=== PATIENT | female | born 1955 | race Caucasian/White ===

== ENCOUNTER 2024-03-05 18:18 | Emergency (ER) | payer MEDICARE ==
[~2024-03-05] VITALS: Ht 154.9 cm; Wt 81.8 kg
[~2024-03-05 18:18] MED LIST: ASPI-1450 PO
[2024-03-05 18:23] VITALS: TEMP 98.5
[2024-03-05 18:30] LABS: COVID AG,FIA SOURCE NASAL SWAB
[2024-03-05 19:14] LABS: INFLUENZA TYPE A NEGATIVE FOR TYPE A (NEGATIVE); INFLUENZA TYPE B NEGATIVE FOR TYPE B (NEGATIVE); SARS-COV2 (COVID) ANTIGEN,FIA Negative (Negative)
[2024-03-05] MEDS ORDERED: ALEN70TA80 PO (20:18)
[2024-03-05] MEDS ORDERED: AMLO5TAB66 PO (20:18)
[2024-03-05] MEDS ORDERED: HYDR25TA2 PO (20:18)
[2024-03-05] MEDS ORDERED: SACU1TAB4 PO (20:18)
[2024-03-05] MEDS ORDERED: ROSU40TA88 PO (20:18)
[2024-03-05] MEDS: ACETAMINOPHEN 500 MG TABLET PO ONE (20:41)
[2024-03-05] MEDS: GuaiFENesin/D-METHORPHAN [SUGAR-FREE] 200-20MG/10 ML SYRUP UDCUP PO ONE (20:41)
[2024-03-05] MEDS: PredniSONE 20 MG TABLET PO ONE (20:42)
[2024-03-05 21:02] VITALS: PULSE 87; RESP 20; O2SAT 98
[2024-03-05] MEDS: ALBUTEROL SULFATE 2.5 MG/0.5 ML NEB SOLUTION NEB ONE (21:02)
[2024-03-05] MEDS: IPRATROPIUM BROMIDE 0.5 MG/2.5 ML NEB SOLUTION NEB ONE (21:02)
[2024-03-05 21:03] LABS: BASOPHILS % (AUTO) 0.2 % (0.0-2.0); EOSINOPHILS % (AUTO) 2.7 % (1.0-6.0); HEMATOCRIT 41.5 % (36-46); HEMOGLOBIN 13.7 g/dL (12.0-16.0); LYMPHOCYTES # (AUTO) 1.8 K/uL (1.0-4.8); LYMPHOCYTES % (AUTO) 21.5 % (22.0-44.0); MEAN CORPUSCULAR HEMOGLOBIN 30.8 pg (26.0-34.0); MEAN CORPUSCULAR HGB CONC 32.9 G/dL (31.0-37.0); MEAN CORPUSCULAR VOLUME 93 fL (80-100); MONOCYTES # (AUTO) 0.8 K/uL (0.1-1.0); MONOCYTES % (AUTO) 9.4 % (2.0-9.0); NEUTROPHILS # (AUTO) 5.4 K/uL (1.8-7.7); NEUTROPHILS % (AUTO) 66.2 % (40.0-70.0); PLATELET COUNT (AUTO) 209 K/uL (150-450); RED BLOOD CELL COUNT(AUTO) 4.45 MIL/uL (4.00-5.20); RED CELL DISTRIBUTION WIDTH 13.5 % (11.5-14.5); WHITE BLOOD COUNT (AUTO) 8.2 K/uL (4.5-11.0)
[2024-03-05 21:11] VITALS: PULSE 87; RESP 20; O2SAT 98
[2024-03-05 21:12] LABS: ANION GAP 10 mmol/L (8-16); CALCIUM, TOTAL 9.2 mg/dL (8.8-10.5); CARBON DIOXIDE 30 mmol/L (22-29); CHLORIDE 102 mmol/L (98-107); CREATININE 0.84 mg/dL (0.60-1.30); GLOMERULAR FILTR. RATE CALC > 60 mL/min (>60); GLUCOSE,RANDOM 125 mg/dL (70-110); POTASSIUM 3.6 mmol/L (3.5-5.1); SODIUM SERUM 142 mmol/L (136-145); UREA NITROGEN, BLOOD 8 mg/dL (7-18)
[2024-03-05 21:17] VITALS: PULSE 89; RESP 20; O2SAT 100
[2024-03-05 21:22] LABS: B-TYPE NATRIURETIC PEPTIDE 16 pg/mL (0-100); TROPONIN I-HIGH SENSITIVITY 4 ng/L (<51)
[2024-03-05] MEDS ORDERED: ACET-66 PO (22:03)
[2024-03-05] MEDS ORDERED: PRED-554 PO (22:03)
[2024-03-05] MEDS ORDERED: ALBU18HF12 IH (22:03)
[2024-03-05] MEDS ORDERED: GUAIFDM PO (22:05)
[2024-03-05 22:10] VITALS: BP 126/84; PULSE 78; RESP 20; O2SAT 100
== END 2024-03-05 22:24 | disposition home or self-care (01) ==
LOC: EMS 18:18
DX: J20.9 Acute bronchitis, unspecified (principal); J06.9 Acute upper respiratory infection, unspecified; I10 Essential (primary) hypertension; Z98.890 Other specified postprocedural states; Z79.82 Long term (current) use of aspirin; Z79.899 Other long term (current) drug therapy; Z88.0 Allergy status to penicillin; Z20.822 Contact with and (suspected) exposure to COVID-19
CPT/HCPCS: 99285; 71045; 87426; 80048; 83880; 84484; 85025; 87804; 36415; 93005; J7512; J7613

== ENCOUNTER 2024-03-29 09:26 | Emergency (ER) | payer MEDICARE ==
[~2024-03-29] VITALS: Ht 152.4 cm; Wt 72.7 kg
[~2024-03-29 09:26] MED LIST changes: +ACET-66 PO; +ALBU18HF12 IH; +ALEN70TA80 PO; +AMLO5TAB66 PO; +GUAIFDM PO; +HYDR25TA2 PO; +PRED-554 PO; +ROSU40TA88 PO; +SACU1TAB4 PO
[2024-03-29 09:38] VITALS: TEMP 88
[2024-03-29 09:40] LABS: COVID AG,FIA SOURCE NASAL SWAB
[2024-03-29] MEDS ORDERED: PROM118S5 PO (09:53)
[2024-03-29 09:55] LABS: BASOPHILS % (AUTO) 0.2 % (0.0-2.0); EOSINOPHILS % (AUTO) 6.2 % (1.0-6.0); HEMATOCRIT 42.2 % (36-46); HEMOGLOBIN 13.8 g/dL (12.0-16.0); LYMPHOCYTES % (AUTO) 46.8 % (22.0-44.0); MEAN CORPUSCULAR HEMOGLOBIN 30.5 pg (26.0-34.0); MEAN CORPUSCULAR HGB CONC 32.7 G/dL (31.0-37.0); MEAN CORPUSCULAR VOLUME 93 fL (80-100); MONOCYTES # (AUTO) 0.8 K/uL (0.1-1.0); MONOCYTES % (AUTO) 18.9 % (2.0-9.0); NEUTROPHILS # (AUTO) 1.2 K/uL (1.8-7.7); NEUTROPHILS % (AUTO) 27.9 % (40.0-70.0); PLATELET COUNT (AUTO) 232 K/uL (150-450); RED BLOOD CELL COUNT(AUTO) 4.52 MIL/uL (4.00-5.20); RED CELL DISTRIBUTION WIDTH 13.6 % (11.5-14.5); WHITE BLOOD COUNT (AUTO) 4.3 K/uL (4.5-11.0)
[2024-03-29 10:04] LABS: ANION GAP 8 mmol/L (8-16); CALCIUM, TOTAL 9.2 mg/dL (8.8-10.5); CARBON DIOXIDE 30 mmol/L (22-29); CHLORIDE 104 mmol/L (98-107); CREATININE 0.71 mg/dL (0.60-1.30); GLOMERULAR FILTR. RATE CALC > 60 mL/min (>60); GLUCOSE,RANDOM 116 mg/dL (70-110); POTASSIUM 3.9 mmol/L (3.5-5.1); SODIUM SERUM 142 mmol/L (136-145); UREA NITROGEN, BLOOD 9 mg/dL (7-18)
[2024-03-29 10:12] LABS: INFLUENZA TYPE A NEGATIVE FOR TYPE A (NEGATIVE); INFLUENZA TYPE B NEGATIVE FOR TYPE B (NEGATIVE); SARS-COV2 (COVID) ANTIGEN,FIA Negative (Negative)
[2024-03-29 10:37] VITALS: PULSE 76; RESP 20; O2SAT 98
[2024-03-29] MEDS: IPRATROPIUM BROMIDE 0.5 MG/2.5 ML NEB SOLUTION NEB ONE (10:40)
[2024-03-29] MEDS: ALBUTEROL SULFATE 2.5 MG/0.5 ML NEB SOLUTION NEB ONE (10:40)
[2024-03-29 10:50] VITALS: PULSE 70; RESP 20; O2SAT 100
[2024-03-29 11:00] VITALS: BP 126/73; PULSE 77; RESP 18; O2SAT 95
[2024-03-29] MEDS ORDERED: PRED-554 PO (11:15)
[2024-03-29] MEDS ORDERED: BENZ-227 PO (11:16)
== END 2024-03-29 11:55 | disposition home or self-care (01) ==
LOC: EMS 09:31
DX: J20.9 Acute bronchitis, unspecified (principal); I10 Essential (primary) hypertension; Z88.0 Allergy status to penicillin; Z79.899 Other long term (current) drug therapy; Z20.822 Contact with and (suspected) exposure to COVID-19
CPT/HCPCS: 71045; 80048; 85025; 87804; 94640; 99285; 36415-L1; 36415-TC; J7613

== ENCOUNTER 2024-05-13 22:30 | Emergency (ER) | payer MEDICARE ==
[~2024-05-13] VITALS: Ht 147.3 cm; Wt 65.9 kg
[~2024-05-13 22:30] MED LIST changes: -ACET-66 PO; -ASPI-1450 PO; +BENZ-227 PO; -GUAIFDM PO; +PROM118S5 PO
[2024-05-13 22:39] VITALS: TEMP 98.2
[2024-05-14 00:19] LABS: BASOPHILS % (AUTO) 0.5 % (0.0-2.0); EOSINOPHILS % (AUTO) 4.8 % (1.0-6.0); HEMATOCRIT 43.6 % (36-46); HEMOGLOBIN 14.8 g/dL (12.0-16.0); LYMPHOCYTES % (AUTO) 33.9 % (22.0-44.0); MEAN CORPUSCULAR HEMOGLOBIN 31.2 pg (26.0-34.0); MEAN CORPUSCULAR HGB CONC 33.9 G/dL (31.0-37.0); MEAN CORPUSCULAR VOLUME 92 fL (80-100); MONOCYTES # (AUTO) 0.6 K/uL (0.1-1.0); MONOCYTES % (AUTO) 10.8 % (2.0-9.0); PLATELET COUNT (AUTO) 222 K/uL (150-450); RED BLOOD CELL COUNT(AUTO) 4.74 MIL/uL (4.00-5.20); RED CELL DISTRIBUTION WIDTH 13.1 % (11.5-14.5)
[2024-05-14 00:23] LABS: ANION GAP 6 mmol/L (8-16); CALCIUM, TOTAL 9.7 mg/dL (8.8-10.5); CARBON DIOXIDE 33 mmol/L (22-29); CHLORIDE 104 mmol/L (98-107); CREATININE 0.71 mg/dL (0.60-1.30); GLOMERULAR FILTR. RATE CALC > 60 mL/min (>60); GLUCOSE,RANDOM 115 mg/dL (70-110); POTASSIUM 3.2 mmol/L (3.5-5.1); SODIUM SERUM 143 mmol/L (136-145); UREA NITROGEN, BLOOD 13 mg/dL (7-18)
[2024-05-14 00:27] LABS: APPEARANCE,URINE HAZY (CLEAR); BILIRUBIN,URINE NEGATIVE (NEGATIVE); COLOR,URINE LIGHT YELLOW (YELLOW); GLUCOSE, URINE (UA) NEGATIVE (NEGATIVE); KETONES,URINE NEGATIVE (NEGATIVE); LEUKOCYTE ESTERASE ,URINE NEGATIVE (NEGATIVE); NITRATE,URINE NEGATIVE (NEGATIVE); OCCULT BLOOD,URINE NEGATIVE (NEGATIVE); PROTEIN,URINE NEGATIVE (NEGATIVE); SPECIFIC GRAVITIY, URINE 1.009 (1.003-1.030); UROBILINOGEN,URINE <=1.0 mg/dL (<=1.0)
[2024-05-14 00:34] LABS: TROPONIN I-HIGH SENSITIVITY Less Than 4 ng/L (<51)
[2024-05-14 01:15] VITALS: BP 143/81; PULSE 64; RESP 17; O2SAT 98
== END 2024-05-14 01:51 | disposition home or self-care (01) ==
LOC: EMS 22:30
DX: I10 Essential (primary) hypertension (principal); E78.00 Pure hypercholesterolemia, unspecified; Z79.52 Long term (current) use of systemic steroids; Z79.899 Other long term (current) drug therapy; Z88.0 Allergy status to penicillin
CPT/HCPCS: 80048; 81003; 84484; 85025; 93005; 99284

== ENCOUNTER 2024-08-24 23:12 | Emergency (ER) | payer MEDICARE ==
[~2024-08-24] VITALS: Ht 147.3 cm; Wt 64.5 kg
[2024-08-24 23:34] VITALS: TEMP 99.1
[2024-08-24 23:39] LABS: COVID AG,FIA SOURCE NASAL SWAB
[2024-08-25 00:02] LABS: SARS-COV2 (COVID) ANTIGEN,FIA Negative (Negative)
[2024-08-25 00:03] LABS: INFLUENZA TYPE A NEGATIVE FOR TYPE A (NEGATIVE); INFLUENZA TYPE B NEGATIVE FOR TYPE B (NEGATIVE)
[2024-08-25] MEDS: BENZONATATE 100 MG CAPSULE PO ONE (01:54)
[2024-08-25] MEDS: IBUPROFEN 400 MG TABLET PO ONE (02:27)
[2024-08-25] MEDS: dexAMETHasone 4 MG TABLET PO ONE (02:27)
[2024-08-25] MEDS ORDERED: 0.9% SODIUM CHLORIDE 5 ML NEB SOLUTION NEB ONE (02:29)
[2024-08-25 02:48] VITALS: PULSE 84; RESP 20; O2SAT 99
[2024-08-25] MEDS: ALBUTEROL SULFATE 2.5 MG/0.5 ML NEB SOLUTION NEB ONE (02:48)
[2024-08-25 03:10] VITALS: PULSE 88; RESP 22; O2SAT 100
[2024-08-25] MEDS ORDERED: BENZ-227 PO (05:01)
[2024-08-25 05:10] VITALS: BP 123/69; PULSE 88; RESP 15; O2SAT 97
== END 2024-08-25 05:17 | disposition home or self-care (01) ==
LOC: EMS 08-25 00:17
DX: J20.9 Acute bronchitis, unspecified (principal); I10 Essential (primary) hypertension; E78.00 Pure hypercholesterolemia, unspecified; Z98.890 Other specified postprocedural states; Z88.0 Allergy status to penicillin; Z79.52 Long term (current) use of systemic steroids; Z79.899 Other long term (current) drug therapy; Z20.822 Contact with and (suspected) exposure to COVID-19
CPT/HCPCS: 87426; 87804; 99285; 71045; 94640; J8540; J7613

== ENCOUNTER 2025-02-16 05:22 | Emergency (ER) | payer MEDICARE ==
[~2025-02-16] VITALS: Ht 147.3 cm; Wt 65.9 kg
[2025-02-16 05:25] VITALS: TEMP 98.6
[2025-02-16 05:46] LABS: COVID AG,FIA SOURCE NASAL SWAB
[2025-02-16 05:47] LABS: PLATELET COUNT (AUTO) 226 K/uL (150-450); RED BLOOD CELL COUNT(AUTO) 4.53 MIL/uL (4.00-5.20); RED CELL DISTRIBUTION WIDTH 14.1 % (11.5-14.5); WHITE BLOOD COUNT (AUTO) 7.6 K/uL (4.5-11.0)
[2025-02-16 05:55] LABS: CALCIUM, TOTAL 9.7 mg/dL (8.8-10.5); CREATININE 0.66 mg/dL (0.60-1.30); GLOMERULAR FILTR. RATE CALC > 60 mL/min (>60); GLUCOSE,RANDOM 145 mg/dL (70-110); SODIUM SERUM 139 mmol/L (136-145); UREA NITROGEN, BLOOD 10 mg/dL (7-18)
[2025-02-16 06:00] LABS: INFLUENZA TYPE A NEGATIVE FOR TYPE A (NEGATIVE); INFLUENZA TYPE B NEGATIVE FOR TYPE B (NEGATIVE); SARS-COV2 (COVID) ANTIGEN,FIA Negative (Negative)
[2025-02-16 06:05] LABS: TROPONIN I-HIGH SENSITIVITY 4 ng/L (<51)
[2025-02-16] MEDS: ACETAMINOPHEN 500 MG TABLET PO ONE (06:22)
[2025-02-16] MEDS: GuaiFENesin/D-METHORPHAN [SUGAR-FREE] 200-20MG/10 ML SYRUP UDCUP PO ONE (06:22)
[2025-02-16] MEDS: IPRATROPIUM BROMIDE 0.5 MG/2.5 ML NEB SOLUTION NEB ONE (06:27)
[2025-02-16] MEDS: ALBUTEROL SULFATE 2.5 MG/0.5 ML NEB SOLUTION NEB ONE (06:27)
[2025-02-16 06:31] VITALS: PULSE 68; RESP 20; O2SAT 98
[2025-02-16 06:45] VITALS: PULSE 71; RESP 20; O2SAT 100
[2025-02-16] MEDS ORDERED: PROM118S5 PO (06:46)
[2025-02-16] MEDS ORDERED: PRED-554 PO (06:46)
[2025-02-16 06:58] VITALS: BP 129/79; PULSE 74; RESP 20; O2SAT 97
== END 2025-02-16 07:01 | disposition home or self-care (01) ==
LOC: EMS 05:22
DX: J20.9 Acute bronchitis, unspecified (principal); E78.00 Pure hypercholesterolemia, unspecified; I10 Essential (primary) hypertension; Z79.52 Long term (current) use of systemic steroids; Z79.899 Other long term (current) drug therapy; Z88.0 Allergy status to penicillin; Z98.890 Other specified postprocedural states; Z20.822 Contact with and (suspected) exposure to COVID-19
CPT/HCPCS: 99285; 71045; 87426; 80048; 84484; 85025; 87804; 36415; 94640; 93005; J7512; J7613